=== PATIENT | female | born 1990 | race African-American/Black ===

== ENCOUNTER 2021-05-07 04:29 | Emergency (ER) | payer SELFPAY ==
[~2021-05-07] VITALS: Ht 188 cm; Wt 73.0 kg
[2021-05-07] MEDS ORDERED: TRAM50TA3 MT (05:54)
[2021-05-07 06:15] VITALS: BP 110/72
== END 2021-05-07 06:15 | disposition home or self-care (01) ==
LOC: ER 04:29
DX: M54.5 Low back pain (principal); M79.605 Pain in left leg; R20.0 Anesthesia of skin; Z91.81 History of falling
CPT/HCPCS: 99281; 99283